=== PATIENT | male | born 1990 | race Caucasian/White ===

== ENCOUNTER → 2019-02-21 | Outpatient (CLI) | payer OTHER ==
[~2019-02-21] MED LIST: PROHANCE 279.3MG/ML 15ML VIAL (A9576) As Ordered ONE
--- NOTE | 2019-02-24 09:44 | REP ---
MRI CERVICAL SPINE WITHOUT AND WITH IV GADOLINIUM: HISTORY: Neck pain. 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 Comparison MRI studies are from November 01, 2017 and October 09, 2017. TECHNIQUE: Sagittal and axial T1- and T2-weighted scans are acquired in the usual fashion with and without fat saturation. Sequences include spin echo, turbo spin echo, and STIR imaging sequences. Gadolinium enhancement dose is 14 ml of intravenous ProHance. MRI FINDINGS: There is straightening of the normal cervical lordosis as seen previously. Cervical vertebral body heights are preserved. Alignment is normal. There is an area of decreased T1, increased T2 signal intensity in the anterior portion of the C2 vertebral body unchanged from the October 09, 2017 prior study. This does not show significant enhancement. Its stability and signal intensity characteristics suggest a benign stable finding. Vertebral body heights are preserved. Alignment is normal. Cortical and medullary bone signal intensity are otherwise normal. There is mild bilateral uncovertebral spurring at the C3-4 disc level unchanged from October 09, 2017 prior study. This appears a little more prominent on the right than the left. Posterior disc margin is unremarkable. No cervical disc herniation is appreciated. No cord compression is seen. Craniocervical junction is unremarkable. There is a linear 1.5 mm diameter fluid collection in the cervical cord centered about the C6 vertebral body extending caudally to mid C7 and cranially to C4-5. This is unchanged as well in the interval since October 09, 2017. No abnormal gadolinium enhancement is seen within the cord or elsewhere. There is mild disc bulging and associated bony hypertrophy on the left side at the T2-T3 level unchanged. 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 Electronically Signed by Joey Mi MD 02/24/2019 11:42 A
== END ==
LOC: M RAD 16:19
PROVIDERS: ATTEND Emergency Medicine
DX: M50.31 Other cervical disc degeneration, high cervical region (principal); M51.34 Other intervertebral disc degeneration, thoracic region
CPT/HCPCS: 72156; A9576

== ENCOUNTER → 2019-07-01 | Outpatient (REF) | payer OTHER | LOC: M SFHCPLAZ 17:22 | PROVIDERS: ATTEND Dermatology | DX: D49.2 Neoplasm of unspecified behavior of bone, soft tissue, and skin (principal) ==

== ENCOUNTER → 2020-05-25 | Outpatient (REF) | payer OTHER | LOC: M LAB REF 11:04 | PROVIDERS: ATTEND Podiatrist Foot & Ankle Surgery | DX: D21.9 Benign neoplasm of connective and other soft tissue, unspecified (principal) ==